=== PATIENT | male | born 1995 | race Two or more races ===

== ENCOUNTER 2020-04-14 09:10 | Outpatient (REF) | payer OTHER, SELFPAY | END 2020-04-14 09:11 | disposition home or self-care (01) | LOC: HO.LAB 09:10 | PROVIDERS: Visit Provider Internal Medicine | DX: Z20.828 Contact with and (suspected) exposure to other viral communicable diseases (principal) | CPT/HCPCS: C9803; U0003 ==

== ENCOUNTER 2020-05-13 08:18 | Outpatient (REF) | payer OTHER, SELFPAY | END 2020-05-13 08:19 | disposition home or self-care (01) | LOC: HO.LAB 08:18 | PROVIDERS: Visit Provider Internal Medicine | DX: Z20.822 Contact with and (suspected) exposure to COVID-19 (principal) | CPT/HCPCS: 36415; C9803; U0003 ==